=== PATIENT | male | born 1970 | race Caucasian/White ===

== ENCOUNTER 2019-05-05 12:38 | Emergency (ER) | payer MEDICAID ==
[~2019-05-05] VITALS: Ht 170.2 cm; Wt 74.8 kg
[2019-05-05 12:55] VITALS: BP 140/68
--- NOTE | 2019-05-05 13:07 | NUR ---
PATIENT BROUGHT BACK FROM TRIAGE WITH CHIEF COMPLAIN OF RIGHT LOWER DENTAL PAIN STARTING ONE WEEK AGO HOWEVER DUE TO NEW SWELLING THIS MORNING CONCERNED ABOUT INFECTION. PATIENT HAS APPOINTMENT WIHT DENTIST WEDNESDAY 05/10. PATIENT DENIES CP, OR DIFFICULTY BREATHING.
--- NOTE | 2019-05-05 13:33 | NUR ---
DISCHARGE INSTRUCTIONS REVIEWED
== END 2019-05-05 13:46 | disposition home or self-care (01) ==
LOC: ED 13:30
DX: K04.7 Periapical abscess without sinus (principal)
CPT/HCPCS: 99283

== ENCOUNTER 2020-09-15 10:50 | Emergency (ER) | payer MEDICAID ==
[~2020-09-15] VITALS: Ht 170.2 cm; Wt 67.4 kg
[2020-09-15 10:53] VITALS: BP 118/67
== END 2020-09-15 13:10 | disposition home or self-care (01) ==
LOC: ED 12:20
DX: S93.412A Sprain of calcaneofibular ligament of left ankle, initial encounter (principal); X58.XXXA Exposure to other specified factors, initial encounter; Y93.89 Activity, other specified; Y92.69 Other specified industrial and construction area as the place of occurrence of the external cause; Y99.8 Other external cause status
CPT/HCPCS: 99283

== ENCOUNTER 2021-01-09 23:48 | Emergency (ER) | payer MEDICAID ==
[~2021-01-09] VITALS: Ht 170.2 cm; Wt 75.0 kg
[2021-01-10 02:39] VITALS: BP 150/93
--- NOTE | 2021-01-10 02:51 | NUR ---
Patient given verbal discharge instructions and they have confirmed that they understand the instructions. Patient ambulatory with steady gait. NAD, all questions answered appropriately, denies additional needs at this time. No personal belongings left in room after discharge.
== END 2021-01-10 02:54 | disposition home or self-care (01) ==
LOC: ED 23:48
DX: M79.672 Pain in left foot (principal); M79.671 Pain in right foot; F10.10 Alcohol abuse, uncomplicated; Z72.9 Problem related to lifestyle, unspecified; F17.200 Nicotine dependence, unspecified, uncomplicated; Y90.0 Blood alcohol level of less than 20 mg/100 ml
CPT/HCPCS: 99281